=== PATIENT | female | born 1965 | race Caucasian/White ===

== ENCOUNTER 2017-11-01 13:33 | Emergency (ER) | payer MEDICAID ==
[~2017-11-01] VITALS: Ht 167.6 cm; Wt 162.8 kg
[~2017-11-01 13:33] MED LIST: ALPRAZOLAM1 MG PO; AMARYL4 MG PO; AMLODIPINE BESY10 M1 PO; ASPI-COR81 M3 PO; ATIVAN1 MG PO; ATORVASTATIN CA40 M1 PO; BENAZEPRIL HYDR20 M1 PO; BENAZEPRIL20 M1 PO; BUSPAR5 MG PO; EC NAPROSYN500 MG PO; FLEXERIL10 MG PO; FUROSEMIDE40 MG PO; GABAPENTIN600 M1 PO; GLIPIZIDE5 MG PO; GLU500 PO; HYDROCHLOROTHIA25 MG PO; LAC PO; LASIX40 MG PO; LEVAQUIN500 MG PO; LEVEMIR100 U/M1; LOT20 PO; LOVASTATIN40 MG PO; MACROBID100 MG PO; METOPROLOL SUC100 M1 PO; MOTRIN800 MG PO; NIRAVAM1 MG PO; NITROSTAT0.4 MG SL; NOR10 PO; OMEPRAZOLE DR20 M1 PO; ONDANSETRON ODT4 M1 PO; OXYCODONE AND A PO; OXYCODONE HYDRO10 M1 PO; PAROXETINE HCL20 M1 PO; PAXIL20 MG PO; TRENTAL400 MG PO; VALIUM5 MG PO; XANAX XR1 M1 PO
[2017-11-01 14:12] VITALS: Ht 167.6 cm; Wt 162.8 kg
[2017-11-01 16:02] LABS: UA SPECIFIC GRAVITY 1.025 (1.005-1.035); microscopic required? YES; urine erythrocyte 2+ (NEGATIVE)
[2017-11-01 18:20] VITALS: BP 138/81
== END 2017-11-01 18:20 | disposition home or self-care (01) ==
LOC: ED 13:33
PROVIDERS: Emergency Medicine
DX: M51.36 Other intervertebral disc degeneration, lumbar region (principal); M54.5 Low back pain; E11.40 Type 2 diabetes mellitus with diabetic neuropathy, unspecified; E78.00 Pure hypercholesterolemia, unspecified; F17.200 Nicotine dependence, unspecified, uncomplicated; E66.01 Morbid (severe) obesity due to excess calories; I10 Essential (primary) hypertension; Z68.45 Body mass index [BMI] 70 or greater, adult; X58.XXXA Exposure to other specified factors, initial encounter; Y93.9 Activity, unspecified; Y92.89 Other specified places as the place of occurrence of the external cause; Y99.8 Other external cause status
CPT/HCPCS: 99406; J1100; J1885; Q0092